=== PATIENT | male | born 1965 | race Caucasian/White ===

== ENCOUNTER 2018-12-28 13:37 | Emergency (ER) | payer OTHER ==
[~2018-12-28] VITALS: Ht 165.1 cm; Wt 79.1 kg
[2018-12-28 13:47] VITALS: BP 164/99; PULSE 97; RESP 16; Ht 165.1 cm; Wt 79.1 kg
[2018-12-28] MEDS ORDERED: IBUPROFEN 800 MG TAB PO ONE (15:00)
[2018-12-28] MEDS ORDERED: IBUP800T48 PO (15:39)
--- NOTE | 2018-12-28 15:40 | ERD ---
ER Documentation Chief Complaint Chief Complaint RH pain p fall x2d. swelling noted. +ROM. HPI 53 year old male presents with left hand pain x 2 days. He reports he fell off of a step and caught himself in a reverse FOOSH position. He states he went to an ED in [place] and he is unsure what they told him. He states they did an xray but did not tell him the results or update him about what to do next. He reports today with 9/10 constant pain. He states the pain is worse above the middle finger. He has not taken any medications. He states messaging it makes the pain better and activity makes the pain worse. He denies a past med hx ROS All systems reviewed and are negative except as per history of present illness. Medications Home Meds Active Scripts Ibuprofen* (Motrin*) 800 Mg Tab, 800 MG PO Q6H PRN for PAIN AND OR ELEVATED TEMP, #30 TAB Prov:CASTILLO BROWNING PA-C 12/28/18 Allergies Allergies: Coded Allergies: No Known Allergy (Unverified , 12/28/18) PMhx/Soc Medical and Surgical Hx: pt denies Medical Hx, pt denies Surgical Hx Hx Alcohol Use: Yes (SOCIAL) Hx Substance Use: No Hx Tobacco Use: Yes Smoking Status: Current every day smoker FmHx Family History: No diabetes Physical Exam Vitals Vital Signs Date Temp Pulse Resp B/P (MAP) Pulse Ox O2 O2 Flow FiO2 Time Delivery Rate 12/28/18 98.9 97 16 164/99 99 13:47 (120) Physical Exam Const: No acute distress Head: Atraumatic Eyes: Normal Conjunctiva ENT: Normal External Ears, Nose and Mouth. Neck: Full range of motion. No meningismus. Resp: Clear to auscultation bilaterally Cardio: Regular rate and rhythm, no murmurs Abd: Soft, non tender, non distended. Normal bowel sounds Skin: No petechiae or rashes Back: No midline or flank tenderness Ext: Left hand: tenderness above the middle finger. Edema present. good 2 + pulses, good ROM, fair clerical order filler strength Neur: Awake and alert Psych: Normal Mood and Affect Results 24 hrs Current Medications Medications Dose Sig/Lulu Start Time Status Last (Trade) Ordered Route PRN Stop Time Admin Dose Reason Admin Ibuprofen 800 mg ONCE ONCE 12/28/18 DC 12/28/18 (Motrin) PO 15:00 12/28/18 14:42 15:01 Procedures/[facility] ED COURSE: The patient was stable throughout ED course. I kept the patient informed of laboratory and diagnostic imaging results throughout the ED course. DIAGNOSTIC IMAGING: Read by radiologist. AMENDMENT: 12/28/2018 3:15:58 PM Kayden Harper M.d Images were reviewed once again. There is an acute comminuted nondisplaced fracture of the neck of the third metacarpal with mild angulation apex posterior. There is no other fracture and there is no dislocation. There is mild soft tissue swelling overlying the fracture. PROCEDURE: Right wrist radiographs. CLINICAL INDICATION: Trauma due to a fall 2 days ago. Right wrist pain. TECHNIQUE: 4 views. Frontal, lateral, obliques including scaphoid view. COMPARISON: No prior studies are available for comparison. FINDINGS: There is no fracture or dislocation. The soft tissues are normal. Articular surfaces are intact. There is no lytic or blastic lesion. There is no radiopaque foreign body. IMPRESSION: 1. Normal images of the right wrist. RPTAT: QQ .Kayden Harper MD, MD Date Time Electronically viewed and signed by .Kayden Harper MD, on 12/28/2018 15:16 PROCEDURE: XR Hand. CLINICAL INDICATION: Trauma due to a fall 2 days ago. Right hand pain. TECHNIQUE: Three views. Frontal, lateral, and oblique images of the right hand were obtained. COMPARISON: No prior studies are available for comparison. FINDINGS: There is an acute comminuted nondisplaced fracture of the neck of the third metacarpal with mild angulation apex posterior. There is no other fracture and there is no dislocation. There is mild soft tissue swelling overlying the fracture. Articular surfaces are intact. There is no lytic or blastic lesion. There is no radiopaque foreign body. IMPRESSION: 1. Acute comminuted nondisplaced fracture of the neck of the third metacarpal with mild angulation apex posterior. Overlying soft tissue swelling. 2. Otherwise unremarkable images of the right hand. RPTAT: QQ .Kayden Harper MD, MD Date Time Electronically viewed and signed by .Kayden Harper MD, on 12/28/2018 15:15 PROCEDURES: SPLINT APPLICATION: The patient was verbally consented at bedside prior to splint application. Patient was explained the risks, benefits and alternatives to this procedure. The patient was neurovascularly intact prior to and status post application of the splint. The patient tolerated the procedure well with no complications. Splint type: volar wrist Extremity: left hand Indication: fracture see above MEDICATIONS GIVEN: Motrin Patient tolerated medication well with no adverse reactions. Patient reported improvement in pain. MEDICAL DECISION MAKING: Patient is a 53 year old male presenting with left hand/wrist pain x 2 days s/p fall on reverse FOOSH. He went to an ED 2 days ago and they performed a Xray but he states they did not tell him anything, did not place him in a cast/brace and did not tell him what to do next. I performed a Xray which showed Acute comminuted nondisplaced fracture of the neck of the third metacarpal with mild angulation apex posterior. Patient was placed in a splint and told to follow up with his PCP and ortho in the next 1-2 days. I have low suspicion for open fracture, osteomyeltis, septic joint, gout, dislocation. Vital signs were reviewed. Patient is afebrile. Patient was not hypoxic. Patient was hemodynamically stable. Patient was told to follow up with primary care for further care and management. PRESCRIPTION: Motrin DISCHARGE: At this time, patient is stable for discharge and outpatient management. I have instructed the patient to follow-up with his/her primary care physician in 1-2 days. I have discussed with the patient the possibility of needing to see a specialist for further workup and imaging studies if symptoms persist. I have instructed the patient to promptly return to the ER for any new or worsening symptoms including increased pain, fever, nausea, vomiting, weakness or LOC. The patient expressed understanding of and agreement with this plan. All questions were answered. Home care instructions were provided. Disclaimer: Inadvertent spelling and grammatical errors are likely due to EHR/dictation software use and do not reflect on the overall quality of patient care. Also, please note that the electronic time recorded on this note does not necessarily reflect the actual time of the patient encounter. Departure Diagnosis: Primary Impression: Hand fracture Encounter type: initial encounter Fracture type: closed Laterality: right Qualified Codes: S62.91XA - Unspecified fracture of right wrist and hand, initial encounter for closed fracture Condition: Fair Patient Instructions: Treating Hand Fractures Referrals: [facility] YOU HAVE RECEIVED A MEDICAL SCREENING EXAM AND THE RESULTS INDICATE THAT YOU DO NOT HAVE A CONDITION THAT REQUIRES URGENT TREATMENT IN THE EMERGENCY DEPARTMENT. FURTHER EVALUATION AND TREATMENT OF YOUR CONDITION CAN WAIT UNTIL YOU ARE SEEN IN YOUR DOCTORS OFFICE WITHIN THE NEXT 1-2 DAYS. IT IS YOUR RESPONSIBILITY TO MAKE AN APPOINTMENT FOR FOLOW-UP CARE. IF YOU HAVE A PRIMARY DOCTOR --you should call your primary doctor and schedule an appointment IF YOU DO NOT HAVE A PRIMARY DOCTOR YOU CAN CALL OUR PHYSICIAN REFERRAL HOTLINE AT IF YOU CAN NOT AFFORD TO SEE A PHYSICIAN YOU CAN CHOSE FROM THE FOLLOWING [facility] [address] [facility]. [facility] [address] [facility]. [facility] [address] [facility] [facility] [address] [facility]. [facility] [address] [facility]. [facility]. [address] [facility]. [facility] YOU HAVE RECEIVED A MEDICAL SCREENING EXAM AND THE RESULTS INDICATE THAT YOU DO NOT HAVE A CONDITION THAT REQUIRES URGENT TREATMENT IN THE EMERGENCY DEPARTMENT. FURTHER EVALUATION AND TREATMENT OF YOUR CONDITION CAN WAIT UNTIL YOU ARE SEEN IN YOUR DOCTORS OFFICE WITHIN THE NEXT 1-2 DAYS. IT IS YOUR RESPONSIBILITY TO MAKE AN APPOINTMENT FOR FOLOW-UP CARE. IF YOU HAVE A PRIMARY DOCTOR --you should call your primary doctor and schedule and appointment IF YOU DO NOT HAVE A PRIMARY DOCTOR YOU CAN CALL OUR PHYSICIAN REFERRAL HOTLINE AT . IF YOU CAN NOT AFFORD TO SEE A PHYSICIAN YOU CAN CHOSE FROM THE FOLLOWING [facility] INSTITUTIONS[facility] [address] [place] [address] [facility] [address] [place] [address] [facility] [address] [place] [address] [facility] Care 7 a.m.- 11 p.m. Every Day of the Week NO APPOINTMENT OR AUTHORIZATION NEEDED SO [facility] Hours: Mon-Fri 9:00 AM - 5:00 PM Additional Instructions: Call 1 of the numbers in the packet to orthopedic clinic in order to get an appointment in the next 1 to 2 days. Call your primary care doctor TOMORROW for an appointment during the next 1-2 days.See the doctor sooner or return here if your condition worsens before your appointment time. CASTILLO BROWNING PA-C Dec 28, 2018 15:40
== END 2018-12-28 16:14 | disposition home or self-care (01) ==
LOC: FTE 13:37
DX: S62.336A Displaced fracture of neck of fifth metacarpal bone, right hand, initial encounter for closed fracture (principal); F17.210 Nicotine dependence, cigarettes, uncomplicated; W10.8XXA Fall (on) (from) other stairs and steps, initial encounter; Y92.9 Unspecified place or not applicable
CPT/HCPCS: 29125; 73110; 73130; Z7610

== ENCOUNTER 2019-02-21 18:16 | Emergency (ER) | payer OTHER ==
[~2019-02-21] VITALS: Ht 167.6 cm; Wt 82.1 kg
[~2019-02-21 18:16] MED LIST: IBUP800T48 PO
[2019-02-21 18:28] VITALS: Ht 167.6 cm; Wt 82.1 kg
[2019-02-21 19:43] VITALS: BP 149/96; PULSE 89; RESP 19
[2019-02-21] MEDS ORDERED: ACETAMINOPHEN 325 MG TAB PO ONE (20:00)
== END 2019-02-21 19:50 | disposition home or self-care (01) ==
LOC: E/R 18:16
DX: F10.230 Alcohol dependence with withdrawal, uncomplicated (principal); F17.210 Nicotine dependence, cigarettes, uncomplicated
CPT/HCPCS: Z7502; Z7610; 99282

== ENCOUNTER 2019-03-04 20:13 | Emergency (ER) | payer SELFPAY ==
[~2019-03-04] VITALS: Ht 167.6 cm; Wt 86.5 kg
[2019-03-04 20:17] VITALS: BP 158/94; PULSE 90; RESP 20; Ht 167.6 cm; Wt 86.5 kg
== END 2019-03-04 23:50 | disposition left against medical advice (07) ==
LOC: E/R 20:13
DX: Z53.21 Procedure and treatment not carried out due to patient leaving prior to being seen by health care provider (principal)